=== PATIENT | male | born 1995 | race Caucasian/White ===

== ENCOUNTER 2017-08-01 15:31 | Emergency (ER) | payer SELFPAY ==
[~2017-08-01] VITALS: Ht 172.7 cm; Wt 55.0 kg
[2017-08-01 15:35] VITALS: BP 137/101
[2017-08-01] MEDS ORDERED: DEXAMETHASONE 10 MG/ML VIAL IM ONE (16:30)
== END 2017-08-01 16:52 | disposition home or self-care (01) ==
LOC: ER 15:39
DX: J20.9 Acute bronchitis, unspecified (principal); F10.129 Alcohol abuse with intoxication, unspecified; F11.10 Opioid abuse, uncomplicated; F17.200 Nicotine dependence, unspecified, uncomplicated; R07.89 Other chest pain; Z98.890 Other specified postprocedural states
CPT/HCPCS: 71010; 96372; 99283; J1100